=== PATIENT | female | born 1975 | race Hispanic/Latino ===

== ENCOUNTER 2023-07-02 04:18 | Emergency (ER) | payer SELFPAY ==
--- OUTSIDE RECORDS SUMMARY | 2023-07-02 04:22 | XMS REPORT | Continuity of Care Document ---
Author Name Unknown Address [address] [facility]. [address] [place] [address] [facility] thconnect Address [address] 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 Tire Mold Tester Name Role Phone Pcp, Patient Does Not Have A Primary Care Physic lamar Angelika Bolanos DO Attending Clinician [phone] ANGELIKA BOLANOS Attending Clinician Unavailab afua AZEVEDO Attending Clinician Unavailable Sonido Bernal Attending Clinician Sonido HICKMAN Attending Clinician Unavailable ROBERTO CARLOS Admitting Clinician Unavailable Problems Condition Name Condition Details Condition Category Status Onset Date Resolution Date Last Treatment Date Treating Clinician Comments Source ASCUS 03/2011 ASCUS 03/2011 Disease Active 08-14 00:00: 00 [facility] Encounter for sterilizat ion Encounter for sterilizat ion Disease Active 10-09 00:00: 00 Overview: Formattin g of this note might be different from the original. 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 Utility [facility] Allergies, Adverse Reactions, Alerts Allergy Name Allergy Type Status Severity Reaction(s) Onset Date Inactive Date Treating Clinician Comments Source NO KNOWN ALLERGIE S Drug Class Active [facility] Social History Social Habit Start Date Stop Date Quantity Comments Source Exposure to SARS-CoV-2 (event) [facility] Alcohol intake 2022-11-22 00:00:00 2022-11-22 00:00:00 Current non-drinker of alcohol (finding) [facility] History of Social function 2022-11-22 00:00:00 2022-11-22 00:00:00 [facility] Tobacco use and exposure 2012-08-14 00:00:00 2012-08-14 00:00:00 Smokeless tobacco non-user [facility] Sex Assigned At 1975 00:00:00 1975 00:00:00 [facility] Smoking Status Start Date Stop Date Source Never smoked tobacco [facility] Medications Ordered Medication Name Filled Medication Name Start Date Stop Date Current Medication? Ordering Clinician Indication Dosage Frequency Signature (SIG) Comments Components Source HYDROcodone -acetaminop hen (NORCO) 10-325 mg tablet 1 tablet 10-15 02:30: 00 10-15 01:21 :00 No 1{tbl} 1 tablet, Oral, ONCE, 1 dose, Mon10/14/20 at 2130, Routine [facility] ondansetron (ZOFRAN (PF)) injection 4 mg 10-15 01:15: 00 10-15 00:15 :00 No 4mg 4 mg, Slow IV Push, ONCE, 1 dose, Mon10/14/20 at 2015, CARLY [facility] morpHINE injection 4 mg 10-15 01:15: 00 10-15 00:15 :00 No 4mg 4 mg, Slow IV Push, ONCE, 1 dose, Mon10/14/20 at 2015, STAT [facility] NaCl 0.9% (NS) bolus infusion 1,000 mL 10-15 00:30: 00 10-15 01:12 :00 No 1000mL at 999 mL/hr, 1,000 mL, IV Infusion, ONCE, 1 dose, Mon10/14/20 at 1930, STAT [facility] ibuprofen 600 mg tablet 10-14 00:00: 00 Yes [id number] 600mg Take 1 tablet by mouth every 6 (six) hours as needed for Pain (scale 4-6). [facility] acetaminoph en-codeine 300-30 mg tablet 10-14 00:00: 00 Yes 4647 1{tbl} Take 1 tablet by mouth every 4 (four) hours as needed for Pain (scale 4-6). Indication s: acute pain [facility] ondansetron (ZOFRAN ODT) 4 mg disintegrat ing tablet 10-14 00:00: 00 Yes [id number] 4mg Take 1 tablet by mouth every 8 (eight) hours as needed for Nausea and Vomiting (N/V). [facility] traMADOL (ULTRAM) 50 mg tablet 2016-03 00:00: 00 Yes 50mg Take 1 tablet by mouth every 6 (six) hours as needed for Pain (scale 7-10). [facility] ondansetron (ZOFRAN, HYDROCHLORI DE,) 4 mg tablet 2016-03 00:00: 00 Yes 4mg Take 1 tablet by mouth every 8 (eight) hours as needed for Nausea and Vomiting (N/V). [facility] pantoprazol e (PROTONIX) 40 mg EC tablet 2016-03 00:00: 00 Yes 40mg Take 1 tablet by mouth daily. [facility] Vital Signs Vital Name Observation Time Observation Value Comments S gideonmena Systolic blood pressure 2022-11-22 16:51:00 173 mm[Hg] [facility] Diastolic blood pressure 2022-11-22 16:51:00 74 mm[Hg] [facility] Heart rate 2022-11-22 16:51:00 85 /min [facility] Body temperature 2022-11-22 16:51:00 37.28 Queta [facility] Respiratory rate 2022-11-22 16:51:00 14 /min [facility] Body height 2022-11-22 16:51:00 157.5 cm [facility] Body weight 2022-11-22 16:51:00 68.04 kg [facility] BMI 2022-11-22 16:51:00 27.44 kg/m2 [facility] Oxygen saturation in Arterial blood by Pulse oximetry 2022-11-22 16:51:00 99 /min [facility] Systolic blood pressure 2020-10-15 01:00:00 109 mm[Hg] [facility] Diastolic blood pressure 2020-10-15 01:00:00 78 mm[Hg] [facility] Heart rate 2020-10-15 01:00:00 66 /min [facility] Respiratory rate 2020-10-15 01:00:00 16 /min [facility] Oxygen saturation in Arterial blood by Pulse oximetry 2020-10-15 01:00:00 99 /min [facility] Body temperature 2020-10-14 23:05:00 37.39 Queta [facility] Body height 2020-10-14 23:05:00 157.5 cm [facility] Body weight 2020-10-14 23:05:00 67.586 kg [facility] BMI 2020-10-14 23:05:00 27.25 kg/m2 [facility] Procedures Procedure Date / Time Performed Performing Clinicia n Source ASSIGNMENT OF BENEFITS 2022-11-22 17:18:31 Docto r Unassigned, [place] [facility] CONSENT/REFUSAL FOR DIAGNOSIS AND TREATMENT 2022-11-22 16:44:59 Doctor Unassigned, [place] [facility] POCT TEST 2020-10-14 23:48:00 Karen Bolanos ra [facility] LIPASE 2020-10-14 23:47:00 [facility] MAGNESIUM 2020-10-14 23:47:00 Sonido Hickman [facility] TROPONIN I 2020-10-14 23:47:00 Sonido Hickman [facility] HEPATIC FUNCTION PANEL (73991) (ALB,T.PRO,BILI T,BU/BC,ALT,AST,ALK PHOS) 2020-10-14 23:47:00 Angelika Bolanos [facility] BASIC METABOLIC PANEL (NA, K, CL, CO2, GLUCOSE, BUN, CREATININE, CA) 2020-10-14 23:47:00 Angelika Bolanos [facility] CBC WITH DIFF 2020-10-14 23:47:00 [facility] 2020-10-14 23:47:00 [facility] NOTICE OF PRIVACY PRACTICES 2020-10-14 22:58:48 Doctor Unassigned, [place] [facility] Encounters Start Date/Time End Date/Time Encounter Type Admission Type Attending Clinicians Care Facility Care Department Encounter ID Source 2022-11-22 11:52:00 2022-11-22 12:23:00 Emergency Angelika Bolanos [facility] [id number] [facility] 2022-11-22 11:52:00 2022-11-22 12:23:00 Emergency X ANGELIKA BOLANOS [facility] ERT [id number] [facility] 2021-10-25 00:00:00 2021-10-25 00:00:00 Outpatient FERGUSON_JO HN [facility] [id number] [place] [facility] Program 2020-10-14 18:07:00 2020-10-14 20:28:00 Emergency Sonido Hickman [facility] [id number] [facility] 2020-10-14 18:07:00 2020-10-14 18:07:00 Emergency X Sonido HICKMAN [facility] ERT [id number] [facility] Results Test Description Test Time Test Comments Results Result Co mments Source [facility] 00:30:23* Test Item Value Reference Range Interpretation Comme nts APPEARANCE (test code = 0082966668) Hazy Clear A COLOR (test code = 7768826876) Yellow Yellow PH (test code = 1006907813) 4.8-8.0 SP GRAVITY (test code = 0738669981) 1.003-1.030 GLU U QUAL (test code = 5501182443) Normal Normal BLOOD (test code = 3786489281) 3+ Negative A KETONES (test code = 3338425671) 5 mg/dL Negative A PROTEIN (test code = 2887-8) 30 mg/dL Negative A UROBILIN (test code = 7004458503) Normal Normal BILIRUBIN (test code = 9602759957) Negative Negative NITRITE (test code = 5541248953) Negative Negative LEUK GOOD (test code = 5935974073) 25/uL Negative A RBC/HPF (test code = 4394334761) >182 See_Comment H [Automated messa ge] The system which generated this result transmitted reference range: 0 - 3 HPF. The reference range was not used to interpret this result as normal/abnormal. WBC/HPF (test code = 7640740796) See_Comment H [Automated messa ge] The system which generated this result transmitted reference range: 0 - 5 HPF. The reference range was not used to interpret this result as normal/abnormal. BACTERIA (test code = 4113250982) Few Negative A MUCOUS (test code = 6579302127) Slight Negative LPF A AMORPHOUS (test code = 0500594610) Rare Rare HPF SQ EPITH (test code = 3331700824) HPF HYAL CAST (test code = 5204326107) See_Comment [Automated messa ge] The system which generated this result transmitted reference range: <=2 LPF. The reference range was not used to interpret this result as normal/abnormal. Lab Interpretation (test code = 71635-6) [facility]normal [facility] 00:24:10* Test Item Value Reference Range Interpretation Comme nts MAGNESIUM (test code = 5304172487) 1.2 mg/dL 1.7-2.4 L Lab Interpretation (test cod e = 33216-1) Abnormal [facility]OL[facility] PAN[facility] (NA, K, CL, CO2, GLUCOSE, BUN, CREATININE, CA)2020-10-15 00:23:50* Test Item Value Reference Range Interpretation Comme nts NA (test code = 9831479958) 133 mmol/L 135-145 L K (test code = 0798090040) 3.2 mmol/L 3.5-5.0 L CL (test code = 1575089228) 100 mmol/L 98-108 CO2 TOTAL (test code = 9771859047) 25 mmol/L 23-31 AGAP (test code = 3391007319) 2-16 BUN (test code = 6482046065) 8 mg/dL 7-23 GLUCOSE (test code = 8687581531) 183 mg/dL 70-110 H CREATININE (test code = 3106452603) 0.42 mg/dL 0.50-1.04 L CALCIUM (test code = 6764583795) 9.4 mg/dL 8.6-10.6 eGFR (test code = 9277771430) mL/min/1.73m2 CHAVO (test code = CHAVO) Association of Glomerular Filtration Rate (GFR) and Staging of Kidney Disease* + --+ --+ ------+| GFR (mL/min/1.73 m2) ?| With Kidney Damage ?| ?Without Kidney Damage+ --------+ --------+ +| ?>90 ?| ?Stage one ?| ? Normal ?+ ---+ ---+ -------+| ?60-89 ?| ?Stage two ?| ? Decreased GFR ? + --+ --+ ------+| ?30-59 ?| ?Stage three ?| ? Stage three ? + --+ --+ ------+| ?15-29 ?| ?Stage four ? | ? Stage four ?+ ---+ ---+ -------+| ?<15 (or dialysis) ? ?| ?Stage five ? | ? Stage five ?+ ---+ ---+ -------+ *Each stage assumes the associated GFR level has been in effect for at least three months. ?Stages 1 to 5, with or without kidney disease, indicate chronic kidney disease. Notes: Determination of stages one and two (with eGFR >59mL/min/1.73 m2) requires estimation of kidney damage for at least three months as defined by structural or functional abnormalities of the kidney, manifested by either:Pathological abnormalities or Markers of kidney damage (including abnormalities in the composition of the blood or urine or abnormalities in imaging tests). Lab Interpretation (test code = 98223-0) Abnormal [facility] (65131) (ALB,T.PRO,BILI T,BU/BC,ALT,AST,ALK PHOS)2020-10-15 00:23:49* Test Item Value Reference Range Interpretation Comme nts TOTAL BILI (test code = 6792553862) 0.7 mg/dL 0.1-1.1 BILI UNCON (test code = 8003037904) 0.6 mg/dL 0.1-1.1 BILI CONJ (test code = 0837375577) 0.0 mg/dL 0.0-0.3 T PROTEIN (test code = 9087314920) 7.2 g/dL 6.3-8.2 ALBUMIN (test code = 6871609755) 4.0 g/dL 3.5-5.0 ALK PHOS (test code = 8831533581) 64 U/L 34-122 ALTv (test code = 1742-6) 18 U/L 5-35 AST(SGOT) (test code = 4954900722) 25 U/L 13-40 Lab Interpretation (test cod e = 18641-9) Normal [facility] 00:23:34* Test Item Value Reference Range Interpretation Comme nts LIPASE (test code = 4594254020) 91 U/L 0-220 Lab Interpretation (test cod e = 10783-7) Normal [facility] WITH KHSS2069-37-63 00:21:09* Test Item Value Reference Range Interpretation Comme nts WBC (test code = 6690-2) See_Comment H [Automated messa ge] The system which generated this result transmitted reference range: 4.30 - 11.10 10*3/?L. The reference range was not used to interpret this result as normal/abnormal. RBC (test code = 789-8) See_Comment L [Automated messa ge] The system which generated this result transmitted reference range: 3.93 - 5.25 10*6/?L. The reference range was not used to interpret this result as normal/abnormal. HGB (test code = 718-7) 10.7 g/dL 11.6-15.0 L HCT (test code = 4544-3) 32.6 % 35.7-45.2 L MCV (test code = 787-2) 84.7 fL 80.6-95.5 MCH (test code = 785-6) 27.8 pg 25.9-32.8 MCHC (test code = 786-4) 32.8 g/dL 31.6-35.1 RDW-SD (test code = 68835-4) 42.5 fL 39.0-49.9 RDW-CV (test code = 788-0) 13.8 % 12.0-15.5 PLT (test code = 777-3) See_Comment [Automated messa ge] The system which generated this result transmitted reference range: 166 - 358 10*3/?L. The reference range was not used to interpret this result as normal/abnormal. MPV (test code = 93266-7) 8.9 fL 9.5-12.9 L NRBC/100 WBC (test code = 4892874978) See_Comment [Automated [employer] ssage] The system which generated this result transmitted reference range: 0.0 - 10.0 /100 WBCs. The reference range was not used to interpret this result as normal/abnormal. NRBC x10^3 (test code = 7487901604) <0.01 See_Comment [Automated messa ge] The system which generated this result transmitted reference range: 10*3/?L. The reference range was not used to interpret this result as normal/abnormal. GRAN MAT (NEUT) % (test code = 770-8) 75.5 % IMM GRAN % (test code = 8130400778) 0.50 % LYMPH % (test code = 736-9) 15.3 % MONO % (test code = 5905-5) 8.3 % EOS % (test code = 713-8) 0.2 % BASO % (test code = 706-2) 0.2 % GRAN MAT x10^3(ANC) (test code = 5582977340) 8.75 10*3/uL 1.88-7.09 H IMM GRAN x10^3 (test code = 6861176795) 0.06 10*3/uL 0.00-0.06 LYMPH x10^3 (test code = 731-0) 1.77 10*3/uL 1.32-3.29 MONO x10^3 (test code = 742-7) 0.96 10*3/uL 0.33-0.92 H EOS x10^3 (test code = 711-2) <0.03 0.03-0.39 L BASO x10^3 (test code = 704-7) <0.03 0.01-0.07 Lab Interpretation (test code = 26409-5) Abnormal [facility] TPGO3203-95-74 23:48:00* Test Item Value Reference Range Interpretation Comme nts POCT PREG (test code = 1605) negative On board controls acceptable with C Line (test code = 3574) present POCT PREG LOT # (test code = 3575) [id number] POCT PREG TEST DATE ( test code = 3576) 03/26/2022 Lab Interpretation (test cod e = 06586-9) Normal [facility] Notes Date/Time Note Provider Source 2022-11-22 12:20:49 fFuWkVIOYRRONdOoyEvP 5Yzna927fpbCQAu kZ3mqdliM8LBxmWYGhOjFLBrDDd1s8214-6 11-22T12:20:49 PT D/C home. GCS15, VS stable, no ataxia noted. Given no prescriptions and D/C paperwork. Pt ambulatory at time of discharge. Pt educated on wound care, med usage, follow up care, s/s worsening condition. Pt verbalized understanding. Work/school note was not given. 76926-5Bjqvkgosh department OzhhFR1501-43-81E86:23:04[facility] NoteTXT1.2.840.636710.1.13.104.2.7. 2.593420|[id number] for patient rgoh13011-3YzleLKNHWLTZ[address] Tt[id number] 2YEQNJZMLEJPUZNWGTYEELJ3361-82-01O9 2:23:041.2.840.354004.1.72.3.15|1.2 .840.141712.1.13.104.2.7.2.727879_1 [id number] [facility] 2022-11-22 11:50:00 io5Sn2RswQmCfJbxOcRF ZyHuO7ilgHBSnVy Xn1AxYXJLecDwWlVodTbfr49EaWta7737-9 1:50:00 Fell in trailer two days ago. Hit face on step. Wound to nose-has been putting vaseline and neosporin in wound. 86823-1Rysbvgkkl department Triage adczFG8718-19-38J25:51:26[facility] department Triage noteTXT1.2.840.362313.1.13.104.2.7. 2.754684|[id number] for patient ogpc80922-5Vvuqoyqwl department [id number] Fief RN[address] Lb[id number] 4RXLXFVFVZBEWEBHNLELXZA0812-00-48P2 1:51:261.2.840.831958.1.72.3.15|1.2 .840.720064.1.13.104.2.7.2.727879_1 [id number] Asia Villegas RN [facility] 2022-11-22 11:44:00 aGMYehVbl5rGySenog6g HMwNvzdPsKXWoQm 62OzRWTdc4ZPTZBIX5pb2WICpPjJa2974-4 1:44:00 Images from the original note were not included.[facility] Emergency Department NotePatient Name: Shirley Caldera of : 1975 47 year old femaleTreatment Room: [address]90Htimsdz Record Number: [id number] Care Physician: PATIENT DOES NOT HAVE A PCPPatient Escorted by: Self [9]Mode of Arrival: Personal means [1]EMS Treatment Prior to ED Arrival: Travel and Exposure Screening:SymptomsDoes patient have any of these symptoms?: (not recorded)Exposure ScreeningHas patient had contact with someone with a communicable disease in the last month?: (not recorded)Diseases exposed to:: (not recorded)Is Patient ?: (not recorded)Exposure Date: (not recorded)Chief Complaint:Chief Complaint Patient presents with Facial Injury History of Present Illness:The patient presents from home for eval for wounds to her face s/p mechanical fall on Monday. Today is Monday. No loc. Not on blood thinners. No blurry vision. No ALTMAN. No neck pain. She noted a wound to her right cheek and her glabela. Tetanus is up to date. She has been using neosporin to her wound and taking ampicillin. Her to see if she needs stitches. Denies other complaints. Here for eval. Past Medical History/Immunizations:Past Medical History: Diagnosis Date ASCUS (atypical squamous cells of undetermined significance) on Pap smear 01/2012 Allergies:No Known AllergiesPast Social History:Tobacco Use Never smoked or used smokeless tobacco. Alcohol Use No. Drug Use No. Sexual Activity Sexually active; Partners: Male; Control/Protection: Surgical. Past Surgical History:Past Surgical History: Procedure Laterality Date CONTINUOUS MONITORING (EXTERNAL) 10/08/2008 EPIDURAL CATHETER INSERTION 10/08/2008 OBSTE CARE,VAG DELIV+ 10/08/2008 TUBAL LIGATION 2008 Review of Systems: Review of Systems Constitutional: Negative for chills and fever. Respiratory: Negative for cough and shortness of breath. Cardiovascular: Negative for chest pain. Gastrointestinal: Negative for abdominal pain. Genitourinary: Negative for dysuria. Musculoskeletal: Negative for arthralgias, neck pain and neck stiffness. Skin: Positive for wound. Neurological: Negative for dizziness. Psychiatric/Behavioral: Negative for agitation. Physical Exam: ED Triage Vitals [11/22/22 1151] Weight 68 kg (150 lb) Actual or estimated Estimated by patient/family report Height 1.575 m (5' 2") BP (!) 173/74 Pulse 85 Resp 14 Temp 37.3 ?C (99.1 ?F) Temp source Oral SpO2 99 % Measured on Room air Physical ExamVitals and nursing note reviewed. Constitutional: Appearance: Normal appearance. She is normal weight. HENT: Head: Normocephalic and atraumatic. Mouth/Throat: Mouth: Mucous membranes are moist. Pharynx: Oropharynx is clear. No oropharyngeal exudate or posterior oropharyngeal erythema. Comments: Dentition intactNo malocclusion of jaw. Eyes: Extraocular Movements: Extraocular movements intact. Conjunctiva/sclera: Conjunctivae normal. Pupils: Pupils are equal, round, and reactive to light. Neck: Comments: No vertebral body tenderness to c-spineCardiovascular: Rate and Rhythm: Normal rate and regular rhythm. Pulmonary: Effort: Pulmonary effort is normal. No respiratory distress. Abdominal: General: There is no distension. Musculoskeletal: General: Normal range of motion. Cervical back: Normal range of motion and neck supple. No tenderness. Skin: General: Skin is warm and dry. Neurological: General: No focal deficit present. Mental Status: She is alert and oriented to person, place, and time. Radiology:No orders to display Lab Results:Lab Results - No data to displayEKG:If EKG completed, see Procedure Note. Orders and Treatments:No orders of the defined types were placed in this encounter.No orders of the defined types were placed in this encounter.First Provider Eval:ED Events Date/Time Event User Comments 11/22/22 1200 Medical Screening Begins ANGELIKA BOLANOS DO -- 11/22/22 1200 First Provider Evaluation ANGELIKA BOLANOS DO -- No notes of EC Admission Criteria type on file.ED COURSEDiagnosis/Impression as of 11/22/22 1218 Multiple abrasions Procedures: ProceduresMDM:Medical Decision MakingThe patient presents from home for eval s/p mechanical fall on Monday. Today is Monday. No loc. Not on blood thinners. No ALTMAN or neck pain. No blurry vision. No loose or missing teeth. Tetanus up to date. Has two abrasions to face she is concerned may need stitches. VSS here in the EC. No vertebral body tenderness to c-spine. Abrasion to right cheek and glabella. Neosporin daily and avoid sun. No need for sutures. Stable here in the EC and is ok for dc home with pcp f/u. Problems Addressed:Multiple abrasions: acute illness or injuryRiskOTC drugs. Flowsheet Documentation: Scoring Tools: No data recorded Disposition/Condition:ED Disposition ED Disposition Disch - Home Condition Stable Comment -- Discharge Medications:Patient's Medications START taking these medications No medications on file CONTINUE taking these medications which have NOT CHANGED ACETAMINOPHEN-CODEINE 300-30 MG TABLET Take 1 tablet by mouth every 4 (four) hours as needed for Pain (scale 4-6). Indications: acute pain IBUPROFEN 600 MG TABLET Take 1 tablet by mouth every 6 (six) hours as needed for Pain (scale 4-6). ONDANSETRON (ZOFRAN ODT) 4 MG DISINTEGRATING TABLET Take 1 tablet by mouth every 8 (eight) hours as needed for Nausea and Vomiting (N/V). ONDANSETRON (ZOFRAN, HYDROCHLORIDE,) 4 MG TABLET Take 1 tablet by mouth every 8 (eight) hours as needed for Nausea and Vomiting (N/V). PANTOPRAZOLE (PROTONIX) 40 MG EC TABLET Take 1 tablet by mouth daily. TRAMADOL (ULTRAM) 50 MG TABLET Take 1 tablet by mouth every 6 (six) hours as needed for Pain (scale 7-10). TRAMADOL (ULTRAM) 50 MG TABLET Take 1 tablet by mouth every 6 (six) hours as needed for Pain (scale 7-10). START taking Modified Medications as Prescribed No medications on file STOP taking these medications No medications on file Follow-up:Electronically signed by: Angelika Bolanos DO11/22/22 1218 [id number] Emergency department NheaEV0430-42-38K74:18:15Physician Emergency department NoteTXT1.2.840.682986.1.13.104.2.7. 2.444580|[id number] for patient ntps62289-7Dhganrlrl department NoteLN[address] Adf[id number] 9OTSPCEGWWSNUJQDWAQGWKZ8498-96-84H4 2:18:151.2.840.407906.1.72.3.15|1.2 .840.056073.1.13.104.2.7.2.727879_1 [id number] [facility]
[2023-07-02 05:00] LABS: Specific Gravity 1.009 (1.005-1.030); Sqamous Epithelial <5 /HPF (None Seen); Urine Bacteria None Seen /HPF (<20); Urine Bilirubin NEGATIVE (Negative); Urine Blood Negative (Negative); Urine Clarity Turbid (Clear); Urine Color Colorless (Yellow); Urine Culture Reflex Order NOT NEEDED; Urine Glucose NEGATIVE (Negative); Urine Ketones NEGATIVE (Negative); Urine Microscopic Reflex YN ORDER UMIC; Urine Mucus Slight /HPF (None Seen); Urine Nitrite NEGATIVE (Negative); Urine Protein 1+ (Negative); Urine RBC <5 /HPF (None Seen); Urine Urobilinogen Normal (Normal); Urine WBC <5 /HPF (<5); Urine pH 5.5 (5.0-7.0)
[2023-07-02 05:12] LABS: Barbiturates NEGATIVE (NEGATIVE); Benzodiazepines NEGATIVE (NEGATIVE); Cocaine NEGATIVE (NEGATIVE); METHAMPHETAM NEGATIVE (NEGATIVE); Methadone NEGATIVE (NEGATIVE); Opiates NEGATIVE (NEGATIVE); Phencyclidine NEGATIVE (NEGATIVE); THC Cannibis NEGATIVE (NEGATIVE)
[2023-07-02 05:18] LABS: PT Prothrombin Time 11.5 SECONDS (9.5-12.5); PTT, Activated Partial Thromb 30.2 SECONDS (24.3-36.9); Protime INR 1.05
[2023-07-02 05:19] LABS: ALT/SGPT 31 U/L (13-56); AST/SGOT 30 U/L (15-37); Albumin/Globulin Ratio 0.9 (1.1-1.8); Alkaline Phosphatase 88 U/L (45-117); Anion Gap 8.5 mEq/L (5.0-15.0); BUN Blood Urea Nitrogen 6 mg/dL (7-18); Bicarbonate 27 mEq/L (21-32); Bilirubin Total 0.3 mg/dL (0.2-1.0); Globulin 4.7 g/dL (2.3-3.5); Glomerular Filtration Rate 111 ml/min (=/>90); Glucose Level 176 mg/dL (74-106); Potassium 3.5 mEq/L (3.5-5.1); Protein, Total 8.7 g/dL (6.4-8.2); Sodium Level 144 mEq/L (136-145)
[2023-07-02 05:20] LABS: Absolute Eosinophils 0.1 K/uL (0-0.5); Absolute Lymphocytes (CBC) 2.1 K/uL (0.7-4.9); Absolute Monocytes 0.2 K/uL (0.1-1.3); Absolute Neutrophil 2.4 K/uL (1.8-8.0); Basophils % 0.6 % (0-1.3); Bilirubin Direct < 0.1 mg/dL (0-0.2); Bilirubin Indirect, Calculated ND mg/dL (0.2-0.8); Eosinophils % 1.2 % (0-4.4); Hematocrit 37.8 % (36.0-45.0); Hemoglobin 12.5 g/dL (12.0-15.0); Lymphocytes % 43.6 % (15.3-44.8); MCH 27.6 pg (27.0-35.0); MCHC 33.1 g/dL (32.0-36.0); MCV 83.5 fL (80-100); MPV 6.5 fL (7.6-11.3); Monocytes % 5.1 % (3.3-12.3); Neutrophils % 49.5 % (41.7-73.7); Nucleated Red Blood Cells % 0.1 % (0-0); Platelets 304 thou/uL (152-406); RBC Red Blood Cell Count 4.53 M/uL (3.86-4.86)
--- NOTE | 2023-07-02 08:42 | ER ---
Nurse's Notes [facility] Name: Serina Mendoza Age: 48 yrs Sex: Female : 1975 Arrival Date: 07/02/2023 Time: 04:18 Bed 6 Private MD: Diagnosis: Adjustment disorder with depressed mood;Alcohol abuse with intoxication, uncomplicated Presentation: 07/01 04:18 Chief complaint: Patient states: she is here because she is having thoughts of killing bm8 herself due to having too many family problems. Coronavirus screen: Vaccine status: Patient reports receiving the 2nd dose of the covid vaccine. Client denies travel out of the [place] in the last 14 days. Coronavirus screen: At this time, the client does not indicate any symptoms associated with coronavirus-19. Ebola Screen: Patient negative for fever greater than or equal to 101.5 degrees Fahrenheit, and additional compatible Ebola Virus Disease symptoms Patient denies exposure to infectious person. Patient denies travel to an Ebola-affected area in the 21 days before illness onset. No symptoms or risks identified at this time. Initial Sepsis Screen: Does the patient meet any 2 criteria? No. Patient's initial sepsis screen is negative. Does the patient have a suspected source of infection? No. Patient's initial sepsis screen is negative. Risk Assessment: Do you want to hurt yourself or someone else? Patient reports desire/thoughts of hurting themselves or someone else. Provider notified. Onset of symptoms was July 01, 2023 at 18:00. 04:18 Method Of Arrival: Law Enforcement: Cony AHUJA [facility] 04:18 Acuity: STEPHANIE 2 bm8 Triage Assessment: 04:18 General: Appears in no apparent distress. well groomed, well developed, well nourished, bm8 Behavior is calm, cooperative, appropriate for age, crying. Pain: Complains of pain in back of neck Pain does not radiate. Pain currently is 2 out of 10 on a pain scale. Quality of pain is described as aching. EENT: No deficits noted. No signs and/or symptoms were reported regarding the EENT system. Neuro: No deficits noted. Level of Consciousness is awake, alert, obeys commands, Oriented to person, place, time, situation, Appropriate for age. Cardiovascular: No deficits noted. Heart tones S1 S2 present Capillary refill < 3 seconds Patient's skin is warm and dry. Respiratory: Airway is patent Respiratory effort is even, unlabored, Respiratory pattern is regular, symmetrical, Breath sounds are clear bilaterally. GI: No deficits noted. No signs and/or symptoms were reported involving the gastrointestinal system. : No deficits noted. No signs and/or symptoms were reported regarding the genitourinary system. Derm: No deficits noted. No signs and/or symptoms reported regarding the dermatologic system. Musculoskeletal: No deficits noted. No signs and/or symptoms reported regarding the musculoskeletal system. 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 - Infectious Disease History:: Denies. - Social history:: Smoking status: Patient denies any tobacco usage or history of. Patient/guardian denies using alcohol, street drugs, IV drugs, tobacco products. Screenin:42 [facility] ED Fall Risk Assessment (Adult) History of falling in the last 3 months, bm8 including since admission No falls in past 3 months (0 pts) Confusion or Disorientation No (0 pts) Intoxicated or Sedated Yes (3 pts) Impaired Gait Mobility Assist Device Used No (0 pt) Altered Elimination No (0 pt) Score/Fall Risk Level 3 or more points = High Risk Oriented to surroundings, Maintained a safe environment, Educated pt \\T\\ family on fall prevention, incl call for assistance when getting out of bed, Provided non-skid footwear, Hourly rounding (assess needs \\T\\ fall precautionary measures) done. Abuse screen: Denies threats or abuse. Nutritional screening: No deficits noted. Tuberculosis screening: No symptoms or risk factors identified. Assessment: 04:42 Reassessment: pt brought in by [facility] police frame straightener dept. They were called bm8 out because son was worried when mother started making statements that she wanted to kill herself. PT placed on XIMENA. 06:00 Reassessment: Patient appears in no apparent distress at this time. Patient and/or bm8 family updated on plan of care and expected duration. Pain level reassessed. Patient is alert, oriented x 3, equal unlabored respirations, skin warm/dry/pink. Patient denies pain at this time. General: Appears in no apparent distress. comfortable, Behavior is calm, cooperative, appropriate for age. Pain: Denies pain. Neuro: No deficits noted. Level of Consciousness is awake, alert, obeys commands, Oriented to person, place, time, situation, Appropriate for age. Cardiovascular: No deficits noted. Denies chest pain, Heart tones S1 S2 present Capillary refill < 3 seconds Patient's skin is warm and dry. Respiratory: Breath sounds are clear bilaterally. Respiratory: Airway is patent Respiratory effort is even, unlabored, Respiratory pattern is regular, symmetrical. GI: No deficits noted. No signs and/or symptoms were reported involving the gastrointestinal system. : No deficits noted. No signs and/or symptoms were reported regarding the genitourinary system. EENT: No deficits noted. No signs and/or symptoms were reported regarding the EENT system. Derm: No deficits noted. No signs and/or symptoms reported regarding the dermatologic system. 07:10 General: Appears in no apparent distress. comfortable, Behavior is calm, cooperative. iw Neuro: Level of Consciousness is awake, alert, obeys commands, Oriented to person, place, time, situation, Moves all extremities. Full function. Cardiovascular: Patient's skin is warm and dry. Respiratory: Respiratory effort is even, unlabored, Respiratory pattern is regular, symmetrical. GI: Abdomen is non-distended. Derm: Skin is intact, is healthy with good turgor. Derm: Skin is pink, warm \\T\\ dry. normal. Musculoskeletal: Range of motion: intact in all extremities. 09:08 Reassessment: pt does not know phone number for family to pick her up, attempted to iw call her personal cell phone [phone], no answer. 09:10 Reassessment: spoke with son, will be en route to pear picker pt. iw Psych: 04:47 [place] Suicide Severity Screening: In the past month, have you wished you were bm8 or wished you could go to sleep and not wake up? Patient responds "yes." Based off the client's responses additional C-SSRS screening is required. "In the past month, have you actually had any thoughts of killing yourself?" Patient responds "yes." Based off the client's response additional [place] suicide severity screening questions to be further documented on paper forms. "In your lifetime, have you ever done anything, started to do anything, or prepared to do anything to end your life?" Patient responds "no.". Subjective: Patient's mood is sad, hopeless, Delusions are denied, Hallucinations are denied Having thoughts of suicide. Denies suicidal plan. Objective: Patient is cooperative, Speech is normal, Affect is flat. Interventions: Removed personal items and placed in bag. Patient placed in hospital gown. Searched person for dangerous items. Urine collected and sent for urine drug test. Belonging list filled out. Safety Checks: Personal items have been removed. Door is open. No visitors are present at this time. Pt denies substance abuse. Commitment: Patient will be an involuntary commitment. Vital Signs: 04:18 BP 140 / 74; Pulse 93; Resp 18; Temp 97.2; Pulse Ox 98% ; Weight 72.57 kg; Height 5 ft. bm8 3 in. ; Pain 2/10; 06:00 BP 119 / 72; Pulse 79; Resp 16; Temp 97.5; Pulse Ox 96% on R/A; Pain 0/10; bm8 09:20 BP 124 / 68; Pulse 71; Resp 16; Temp 98.1; Pulse Ox 100% on R/A; Pain 0/10; iw 04:18 Body Mass Index 28.34 (72.57 kg, 160.02 cm) bm8 04:18 Pain Scale: Adult bm8 06:00 Pain Scale: Adult bm8 09:20 Pain Scale: Adult iw Marc Coma Score: 04:42 Eye Response: spontaneous(4). Motor Response: obeys commands(6). Verbal Response: bm8 oriented(5). Total: 15. 06:00 Eye Response: spontaneous(4). Motor Response: obeys commands(6). Verbal Response: bm8 oriented(5). Total: 15. ED Course: 04:18 Safety Checks: Personal items have been removed. The door is open or patient has been km8 placed in a hallway bed/chair. There are no family/friend visitors at this time Sitter present at this time. 04:18 Arm band placed on right wrist. Patient placed in an exam room, on a stretcher. EKG bm8 completed in triage. Results shown to MD. 04:18 Valuables inventory done. Given to security. ty 04:21 Patient arrived in ED. rv1 04:21 Peewee Waggoner MD is Attending Physician. rt 04:29 EKG done, by ED staff, reviewed by Peewee Waggoner MD. Inserted saline lock: 22 gauge km8 in left wrist, using aseptic technique. Blood collected. 04:34 Grant Mancilla, RN is Primary Nurse. bm8 04:36 Hepatic Function Sent. km8 04:36 PT-INR Sent. km8 04:36 Ptt, Activated Sent. km8 04:36 Salicylate Sent. km8 04:36 Acetaminophen Sent. km8 04:36 Basic Metabolic Panel Sent. km8 04:36 CBC with Diff Sent. km8 04:36 ETOH Level Sent. km8 04:36 Urinalysis w/ reflexes Sent. km8 04:36 Urine Drug Screen Sent. km8 04:36 Initial lab(s) drawn, by al, sent to lab. Urine collected: clean catch specimen, clear. km8 04:37 Triage completed. bm8 04:42 No provider procedures requiring assistance completed. bm8 04:42 Patient has correct armband on for positive identification. Bed in low position. Side bm8 rails up X 1. pt has one to one sitter at this time and placed in paper scrubs per hospital policy, belongings removed from pt's possession. Provided Education on: SI/ hi process. Sitter at bedside. Noise minimized. Visitors limited. Lights dimmed. Warm blanket given. Verbal reassurance given. 05:00 Safety Checks: Personal items have been removed. The door is open or patient has been km8 placed in a hallway bed/chair. There are no family/friend visitors at this time Sitter present at this time. 05:05 Patient requests rest room assistance. km8 06:00 Safety Checks: Personal items have been removed. The door is open or patient has been km8 placed in a hallway bed/chair. There are no family/friend visitors at this time Sitter present at this time. 06:00 Safety Checks: Personal items have been removed. The door is open or patient has been bm8 placed in a hallway bed/chair. There are no family/friend visitors at this time Sitter present at this time. Other: personal items given to security. 06:00 Patient has correct armband on for positive identification. Placed in gown. Bed in low bm8 position. Side rails up X 1. sitter at bedside. Sitter at bedside. 06:57 Report given to nicole waldron. bm8 06:58 Primary Nurse role handed off by Grant Mancilla, NICOLE bm8 07:00 Ivonne Gipson RN is Primary Nurse. iw 07:00 Door closed. Lights dimmed. ty 07:00 Safety checks: Items removed: yes. Sitter present:. ty 07:05 Attending Physician role handed off by Peewee Waggoner MD rene 07:05 Franki Healy MD is Attending Physician. rene 08:40 Piter Doss MD is Referral Physician. rene 09:13 IV discontinued, intact, bleeding controlled, No redness/swelling at site. Pressure ty dressing applied. 09:22 IV discontinued, intact, bleeding controlled, No redness/swelling at site. Pressure iw dressing applied. Administered Medications: No medications were administered Medication: 04:42 VIS not applicable for this client. bm8 Outcome: 08:41 Discharge ordered by . rene 09:23 Discharged to home ambulatory, with family, iw 09:23 Condition: good 09:23 Discharge instructions given to patient, Instructed on discharge instructions, follow up and referral plans. Demonstrated understanding of instructions, follow-up care, 09:24 Patient left the ED. iw Signatures: Franki Healy MD MD cha Williams, Irene, NICOLE RIVERA iw Peewee Waggoner MD MD rt Villegas, Rebecca rv1 Amada Dyer RN RN 8 Constantine Avalos ty Grant Mancilla, NICOLE RN bm8 Corrections: (The following items were deleted from the chart) 07:15 06:00 Patient has correct armband on for positive identification. Placed in gown. Bed ty in low position. Call light in reach. Side rails up X 1. sitter at bedside bm8
--- NOTE | 2023-07-02 08:42 | EDPHYS ---
Physician Documentation [facility] Name: Serina Mendoza Age: 48 yrs Sex: Female : 1975 Arrival Date: 07/02/2023 Time: 04:18 Bed 6 Private MD: ED Physician Franki Healy HPI: 07/01 05:56 This 48 yrs old Female presents to ER via Law Enforcement with complaints of rt Psych Problem. 05:56 Patient presents to the ED with reported depression. Patient reportedly made suicidal rt comments to family members, she was brought in on an XIMENA. Patient denies any plan of suicide at this time. She reports a mild pressure to the back of her head but denies overt pain. Denies other physical symptoms, symptoms are moderate in severity, no other aggravating or alleviating factors.. 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 - Infectious Disease History:: Denies. - Social history:: Smoking status: Patient denies any tobacco usage or history of. Patient/guardian denies using alcohol, street drugs, IV drugs, tobacco products. ROS: 05:56 Constitutional: Negative for fever, chills, and weight loss, Cardiovascular: Negative rt for chest pain, palpitations, and edema, Respiratory: Negative for shortness of breath, cough, wheezing, and pleuritic chest pain, Abdomen/GI: Negative for abdominal pain, nausea, vomiting, diarrhea, and constipation, MS/Extremity: Negative for injury and deformity, Skin: Negative for injury, rash, and discoloration, 05:56 Psych: Positive for suicidal ideation, Negative for homicidal ideation, Exam: 05:56 Constitutional: This is a well developed, well nourished patient who is awake, alert, rt and in no acute distress. Head/Face: Normocephalic, atraumatic. Chest/axilla: Normal chest wall appearance and motion. Nontender with no deformity. No lesions are appreciated. Cardiovascular: Regular rate and rhythm with a normal S1 and S2. No gallops, murmurs, or rubs. Normal PMI, no JVD. No pulse deficits. Respiratory: Lungs have equal breath sounds bilaterally, clear to auscultation and percussion. No rales, rhonchi or wheezes noted. No increased work of breathing, no retractions or nasal flaring. Abdomen/GI: Soft, non-tender, with normal bowel sounds. No distension or tympany. No guarding or rebound. No evidence of tenderness throughout. Skin: Warm, dry with normal turgor. Normal color with no rashes, no lesions, and no evidence of cellulitis. MS/ Extremity: Pulses equal, no cyanosis. Neurovascular intact. Full, normal range of motion. Neuro: Awake and alert, GCS 15, oriented to person, place, time, and situation. Cranial nerves II-XII grossly intact. Motor strength 5/5 in all extremities. Sensory grossly intact. Cerebellar exam normal. Normal gait. 05:56 ECG was reviewed by the Attending Physician. Vital Signs: 04:18 BP 140 / 74; Pulse 93; Resp 18; Temp 97.2; Pulse Ox 98% ; Weight 72.57 kg; Height 5 ft. bm8 3 in. ; Pain 2/10; 06:00 BP 119 / 72; Pulse 79; Resp 16; Temp 97.5; Pulse Ox 96% on R/A; Pain 0/10; bm8 09:20 BP 124 / 68; Pulse 71; Resp 16; Temp 98.1; Pulse Ox 100% on R/A; Pain 0/10; iw 04:18 Body Mass Index 28.34 (72.57 kg, 160.02 cm) bm8 04:18 Pain Scale: Adult bm8 06:00 Pain Scale: Adult bm8 09:20 Pain Scale: Adult iw [place] Coma Score: 04:42 Eye Response: spontaneous(4). Motor Response: obeys commands(6). Verbal Response: bm8 oriented(5). Total: 15. 06:00 Eye Response: spontaneous(4). Motor Response: obeys commands(6). Verbal Response: bm8 oriented(5). Total: 15. MDM: 04:21 Patient medically screened. rt 08:16 Differential diagnosis: drug withdrawal. acute psychotic break, depression. Data rene reviewed: vital signs, nurses notes, lab test result(s), EKG. Consideration of Admission/Observation Escalation of care including admission/observation considered. I considered the following discharge prescriptions or medication management in the emergency department Medications were administered in the Emergency Department. See MAR. Test considered but Not performed: CT: NO CT HEAD. Care significantly affected by the following chronic conditions: Diabetes, Hypertension, Obesity. 07/01 04:34 Order name: Acetaminophen; Complete Time: 05:29 rt 07/01 04:34 Order name: Basic Metabolic Panel; Complete Time: 05:29 rt 07/01 04:34 Order name: CBC with Diff; Complete Time: 05:29 rt 07/01 04:34 Order name: ETOH Level; Complete Time: 05:29 rt 07/01 04:34 Order name: Hepatic Function; Complete Time: 05:29 rt 07/01 04:34 Order name: PT-INR; Complete Time: 05:29 rt 07/01 04:34 Order name: Ptt, Activated; Complete Time: 05:29 rt 07/01 04:34 Order name: Salicylate; Complete Time: 05:29 rt 07/01 04:34 Order name: Urinalysis w/ reflexes; Complete Time: 05:29 rt 07/01 04:34 Order name: Urine Drug Screen; Complete Time: 05:29 rt 07/01 04:34 Order name: EKG; Complete Time: 04:35 rt 07/01 04:34 Order name: EKG - Nurse/Tech; Complete Time: 04:36 rt 07/01 04:34 Order name: IV Saline Lock; Complete Time: 04:36 rt 07/01 04:34 Order name: Labs collected and sent; Complete Time: 04:36 rt 07/01 04:34 Order name: Suicide Screening ([place]); Complete Time: 04:36 rt EC:56 Rate is 87 beats/min. Rhythm is regular, Normal Sinus Rhythm with No ectopy. QRS Independence rt is Normal. CT interval is normal. QRS interval is normal. QT interval is normal. No Q waves. T waves are Normal. No ST changes noted. Interpreted by me. Administered Medications: No medications were administered Disposition Summary: 07/02/23 08:41 Discharge Ordered Notes: Location: Home rene Problem: new rene Symptoms: have improved rene Condition: Stable rene Diagnosis - Adjustment disorder with depressed mood rene - Alcohol abuse with intoxication, uncomplicated rene Followup: rene - With: Private Physician - When: 2 - 3 days - Reason: Recheck today's complaints, Continuance of care, Re-evaluation by your physician Followup: rene - With: Piter Doss MD - When: 2 - 3 days - Reason: Recheck today's complaints, Re-evaluation by your physician Discharge Instructions: - Discharge Summary Sheet rene - Adjustment Disorder, Adult rene - Alcohol Intoxication rene - Alcohol Use Disorder rene - Substance Use Disorder rene - Suicidal Feelings: How to Help Yourself rene - Helping Someone Who is Suicidal rene - Alcohol Intoxication, [id number] rene - Alcohol Abuse and Nutrition erne - Alcohol Abuse and Dependence Information, Adult rene - Substance Use Disorder and Mental Illness [facility] Forms: - Medication Reconciliation Form rene - Thank You Letter rene - Antibiotic Education rene - Prescription Opioid Use rene - Patient Portal Instructions [facility] - Leadership Thank You Letter rene Signatures: Dispatcher [employer] EDFranki Chaney MD MD cha [place], Ryan, MD MD rt Grant Mancilla, RN RN bm8 Corrections: (The following items were deleted from the chart) 06:14 06:14 ETHANOL+C.LAB.BRZ ordered. EDMS EDMS
[2023-07-02 13:58] VITALS: BP 119/72; TEMP 97.5; O2SAT 96
--- NOTE | 2023-07-03 12:44 | EKG ---
Test Date: 2023-07-02 Test Time: 04:25:35 Body Artist: ADALBERTO MEASUREMENT RESULTS: Intervals: Rate: 87 AR: 158 QRSD: 102 QT: 360 QTc: 433 Edgar: P: -14 AR: 158 QRS: -11 T: -22 INTERPRETIVE STATEMENTS: Normal sinus rhythm Normal ECG No previous ECG available for comparison Electronically Signed On 07-03-23 12:41:06 CDT by Jeremy Hart
== END 2023-07-02 09:24 | disposition home or self-care (01) ==
LOC: ER 04:18
DX: F43.21 Adjustment disorder with depressed mood (principal); F10.129 Alcohol abuse with intoxication, unspecified
CPT/HCPCS: 36415; 80048; 80076; 80143; 80179; 80307; 81001; 82077; 85025; 85610; 85730; 93005; 99285